=== PATIENT | female | born 1990 | race Hispanic/Latino ===

== ENCOUNTER 2018-09-25 03:39 | Emergency (ER) | payer MEDICAID ==
[2018-09-25 04:05] VITALS: BP 100/65; PULSE 92; RESP 20; TEMP 99.2; O2SAT 98
[2018-09-25 04:06] VITALS: BMI 21.7
--- NOTE | 2018-09-25 04:41 | ED PDOC ---
HPI: General Adult Time Seen by Provider: 09/25/18 04:18 Chief Complaint (Nursing): ENT Problem Chief Complaint (Provider): ENT Problem History Per: Patient History/Exam Limitations: no limitations Onset/Duration Of Symptoms: Days (x2) Additional Complaint(s): 28 years old Spaniard female with no significant PMHx presents to ER for evaluation of right sided earache and facial pain onset 2 days ago. Patient reports associated fever, chills and nasal congestion. She states she has been taking Tylenol with relief. Patient denies any cough, shortness of breath, nausea, vomiting and diarrhea. PMD: None provided Past Medical History Reviewed: Historical Data, Nursing Documentation, Vital Signs Vital Signs: Last Vital Signs Temp 99.2 F 09/25/18 04:03 Pulse 92 H 09/25/18 04:03 Resp 20 09/25/18 04:03 BP 100/65 09/25/18 04:03 Pulse Ox 98 09/25/18 04:03 - Medical History PMH: No Chronic Diseases - Surgical History Surgical History: No Surg Hx - Family History Family History: States: Unknown Family Hx - Social History Current smoker - smoking cessation education provided: No Alcohol: None Drugs: Denies - Home Medications Home Medications: Ambulatory Orders Medication Instructions Recorded Azithromycin [Zithromax] 250 mg PO QAM #1 pkg 09/25/18 - Allergies Allergies/Adverse Reactions: Allergies Allergy/AdvReac Type Severity Reaction Status Date / Time shellfish derived Allergy ITCHING Verified 09/25/18 04:18 Review of Systems ROS Statement: Except As Marked, All Systems Reviewed And Found Negative Constitutional: Positive for: Fever, Chills, Other (Right facial pain) ENT: Positive for: Ear Pain (Right sided), Nose Congestion Respiratory: Negative for: Cough, Shortness of Breath Gastrointestinal: Negative for: Nausea, Vomiting, Diarrhea Physical Exam - Reviewed Nursing Documentation Reviewed: Yes Vital Signs Reviewed: Yes - Physical Exam Appears: Positive for: Well, No Acute Distress Head Exam: Positive for: ATRAUMATIC, NORMOCEPHALIC Skin: Positive for: Normal Color, Warm, Dry Eye Exam: Positive for: Normal appearance, EOMI, PERRL ENT: Positive for: Normal ENT Inspection Neck: Positive for: Normal, Painless ROM, Supple Cardiovascular/Chest: Positive for: Regular Rate, Rhythm. Negative for: Murmur Respiratory: Positive for: Normal Breath Sounds. Negative for: Respiratory Distress Gastrointestinal/Abdominal: Positive for: Normal Exam, Soft. Negative for: Tenderness Back: Positive for: Normal Inspection. Negative for: L CVA Tenderness, R CVA Tenderness Extremity: Positive for: Normal ROM. Negative for: Pedal Edema, Swelling Neurologic/Psych: Positive for: Alert, Oriented (x3) - ECG O2 Sat by Pulse Oximetry: 98 (RA) Pulse Ox Interpretation: Normal Medical Decision Making Medical Decision Making: Time: 430 Initial Impression: 28 y/o female with earache Initial Plan: --Influenza A B --Rapid Strep Group A Antigen 0539 Flu and strep negative. Patient is stable for discharge with a prescription of Zithromax with precaution to take only if symptoms did not improve in 24-48 hours. Patient verbalized understanding. Diagnosis: sinusitis. Scribe Attestation: Documented by Trixie Newell, acting as a scribe for Edwin Nelson MD. Provider Scribe Attestation: All medical record entries made by the Scribe were at my direction and personally dictated by me. I have reviewed the chart and agree that the record accurately reflects my personal performance of the history, physical exam, medical decision making, and the department course for this patient. I have also personally directed, reviewed, and agree with the discharge instructions and disposition. Disposition - Clinical Impression Clinical Impression: URI (upper respiratory infection), Sinusitis - Patient ED Disposition Is Patient to be Admitted: No - Disposition Disposition: Routine/Home Disposition Time: 05:39 Condition: STABLE Prescriptions: Azithromycin [Zithromax] 250 mg PO QAM #1 pkg Instructions: Viral Upper Respiratory Infection, Adult (DC) Forms: [employer] [facility] (Arabic)
== END 2018-09-25 05:34 | disposition home or self-care (01) ==
LOC: H.ER 03:39
DX: J06.9 Acute upper respiratory infection, unspecified (principal); J32.9 Chronic sinusitis, unspecified

== ENCOUNTER 2018-09-29 04:04 | Emergency (ER) | payer MEDICAID ==
[2018-09-29 04:05] VITALS: BMI 21.7
[2018-09-29 04:21] VITALS: BP 121/86; PULSE 86; RESP 20; TEMP 97.7; O2SAT 100
--- NOTE | 2018-09-29 06:01 | ED PDOC ---
HPI: Headache Time Seen by Provider: 09/29/18 04:35 Chief Complaint (Nursing): Headache Chief Complaint (Provider): ENT problem History Per: Patient History/Exam Limitations: no limitations Onset/Duration Of Symptoms: Days (1x week) Current Symptoms Are (Timing): Still Present Severity: Moderate Additional Complaint(s): 28 year old female with no past medical history presents to the ED for an evaluation of facial pressure, headaches, and nasal congestion ongoing for less than 1x week. Less than 1x week ago, patient was diagnosed with sinusitis and prescribed antibiotics, which she did not take. Patient states that she started to feel better, but last night she developed severe facial pain which prevented her from sleeping, prompting ED visit. Patient reports taking tylenol prior to arrival, which made her start to feel better. Patient denies having fevers, and neck stiffness. PMD: None Past Medical History Reviewed: Historical Data, Nursing Documentation, Vital Signs Vital Signs: Last Vital Signs Temp 97.7 F 09/29/18 04:20 Pulse 86 09/29/18 04:20 Resp 20 09/29/18 04:20 BP 121/86 09/29/18 04:20 Pulse Ox 100 09/29/18 04:20 IJEOMA Report Viewed: Yes - Medical History PMH: No Chronic Diseases - Family History Family History: States: No Known Family Hx - Social History Current smoker - smoking cessation education provided: No Alcohol: None Drugs: Denies - Home Medications Home Medications: Ambulatory Orders Medication Instructions Recorded Azithromycin [Zithromax] 250 mg PO QAM #1 pkg 09/25/18 Fluticasone Propionate [Flonase] 1 spr NS DAILY #1 bottle 09/29/18 Ibuprofen [Motrin Tab] 600 mg PO Q6 #30 tab 09/29/18 Prednisone [Deltasone] 40 mg PO DAILY 3 Days #6 tablet 09/29/18 - Allergies Allergies/Adverse Reactions: Allergies Allergy/AdvReac Type Severity Reaction Status Date / Time shellfish derived Allergy ITCHING Verified 09/25/18 04:18 Review of Systems ROS Statement: Except As Marked, All Systems Reviewed And Found Negative Constitutional: Negative for: Fever ENT: Positive for: Nose Congestion, Other (facial pressure) Musculoskeletal: Negative for: Neck Pain ((-) neck stiffness) Neurological: Positive for: Headache Physical Exam - Reviewed Nursing Documentation Reviewed: Yes Vital Signs Reviewed: Yes - Physical Exam Appears: Positive for: Well, Non-toxic, No Acute Distress Head Exam: Positive for: ATRAUMATIC, NORMOCEPHALIC Skin: Positive for: Normal Color, Warm, Dry Eye Exam: Positive for: Normal appearance ENT: Positive for: Other (maxillary and ethmoid sinus pressure) Neck: Positive for: Normal, Supple Cardiovascular/Chest: Positive for: Regular Rate, Rhythm Respiratory: Positive for: Normal Breath Sounds Extremity: Positive for: Normal ROM Neurologic/Psych: Positive for: Alert, manager knowledge II-XII, Oriented (3x). Negative for: Motor/Sensory Deficits - ECG O2 Sat by Pulse Oximetry: 100 (RA) Pulse Ox Interpretation: Normal Medical Decision Making Medical Decision Makin:35 Initial impression: 28 year old well appearing female with sinusitis. Encouraged patient to use NSAIDs, steroids, and flonase. Advised patient not to breastfeed 4x hours after taking prednisone. Patient is stable for discharge and follow up with . Patient very well appearing with normal vitals Initial plan: * motrin tab 600 mg PO * prednisone tab 40 mg PO Scribe Attestation: Documented Alesia Ocampo, acting as a scribe for Parish Hernandez MD. Provider Scribe Attestation: All medical record entries made by the Scribe were at my direction and personally dictated by me. I have reviewed the chart and agree that the record accurately reflects my personal performance of the history, physical exam, medical decision making, and the department course for this patient. I have also personally directed, reviewed, and agree with the discharge instructions and disposition. Disposition - Clinical Impression Clinical Impression: Sinusitis - Disposition Referrals: Raul Burnett MD [Staff Provider] - Disposition: Routine/Home Disposition Time: 04:35 Condition: GOOD Prescriptions: Fluticasone Propionate [Flonase] 1 spr NS DAILY #1 bottle Ibuprofen [Motrin Tab] 600 mg PO Q6 #30 tab Prednisone [Deltasone] 40 mg PO DAILY 3 Days #6 tablet Instructions: Sinusitis in Adults Forms: [facility] (Sinhala)
== END 2018-09-29 05:45 | disposition home or self-care (01) ==
LOC: H.ER 04:04
DX: J32.9 Chronic sinusitis, unspecified (principal)